=== PATIENT | female | born 1950 | race Caucasian/White ===

== ENCOUNTER 2021-11-27 14:20 | Inpatient (IN) | payer OTHER, MEDICARE ==
[2021-11-27] MEDS ORDERED: hydrALAZINE 20 MG/ML VIAL SLOW IVP PRN (17:55)
[2021-11-27] MEDS ORDERED: Morphine 4 MG/ML VIAL SLOW IVP PRN (17:55)
[2021-11-27] MEDS ORDERED: Dextrose 50% Abboject 50 ML SYRINGE SLOW IVP PRN (17:55)
[2021-11-27] MEDS ORDERED: Ondansetron PF 4 MG/2 ML Vial IVP PRN (17:55)
[2021-11-27] MEDS ORDERED: Dextrose 5% in Water 1,000 ML IV PRN (17:55)
[2021-11-27 18:03] LABS: #Basophils 0.1 thou/uL (0.0-0.2); #Eosinphils 0.1 thou/uL (0.0-0.7); #Lymphocytes 1.7 thou/uL (1.20-3.40); #Neutrophils 5.4 thou/uL (1.40-6.50); %Basophils 0.9 % (0.0-1.0); %Eosinophils 1.8 % (0.0-10.0); %Lymphocytes 20.9 % (21.0-51.0); %Monocytes 11.5 % (0.0-10.0); Hemoglobin 10.5 g/dL (12.0-16.0); Mean Corpuscular Hemoglobin 30.2 pg (27.0-31.0); Mean Corpuscular Volume 94.4 fL (78.0-98.0); Mean Platelet Volume 7.1 fL (7.4-10.4); Platelet Count 397 thou/uL (130-400); RBC Distribution Width 17.3 % (11.5-14.5); Red Blood Cell (RBC) Count 3.47 mill/uL (4.20-5.40); White Blood Cell (WBC) Count 8.3 thou/uL (4.8-10.8)
[2021-11-27 18:21] LABS: Bilirubin Negative (Negative); Blood, Urine Trace (Negative); Clarity Clear (Clear); Glucose, Urine (Dipstick) Normal (Negative); Ketone, Urine Trace mg/dL (Negative); Leukocyte Negative Leu/uL (Negative); Nitrite Negative (Negative); Protein, Urine (Dipstick) Negative (Neg-Trace); Specific Gravity, Urine 1.012 (1.002-1.036); Squamous Epithelial 0-3 HPF (0-3); Urobilinogen Normal mg/dL (Less than 2); WBC/HPF 0-3 HPF (0-3); pH, Urine 6.5 (5.0-9.0)
[2021-11-27 18:22] LABS: Bacteria/HPF Rare-Few HPF (None Seen)
[2021-11-27 18:27] LABS: ALT (SGPT) 10 U/L (8-55); AST (SGOT) 11 U/L (5-34); Albumin 3.7 g/dL (3.4-4.8); Alkaline Phosphatase 118 U/L (40-110); Anion Gap 15 mmol/L (10-20); BUN (Urea Nitrogen) 7 mg/dL (9.8-20.1); Bilirubin, Total 0.5 mg/dL (0.2-1.2); Calc. Creatinine Clearance 0 mL/min (70-130); Calcium 9.9 mg/dL (7.8-10.44); Carbon Dioxide 25 mmol/L (23-31); Chloride 103 mmol/L (98-107); Globulin 3.4 g/dL (2.4-3.5); Glucose 85 mg/dL (83-110); Magnesium 1.9 mg/dL (1.6-2.6); Potassium 3.9 mmol/L (3.5-5.1); Protein, Total 7.1 g/dL (5.8-8.1); Sodium 139 mmol/L (136-145)
[2021-11-27] MEDS ORDERED: Cyclobenzaprine 10 MG TAB PO PRN (18:38)
[2021-11-27] MEDS ORDERED: traMADol HCl 50 MG TAB PO PRN ×2 (18:38)
[2021-11-27 19:01] LABS: SARS-CoV-2 NAA Rapid Test Not Detected (NotDetected)
[2021-11-27 19:37] LABS: Amphetamine Not Detected (NotDetected); Barbiturates Screen Not Detected (NotDetected); Benzodiazepine Screen Not Detected (NotDetected); Cocaine Metabolite Screen Not Detected (NotDetected); Methadone Not Detected (NotDetected); Methamphetamine Not Detected (NotDetected); Opiate Screen Not Detected (NotDetected); Oxycodone Screen Not Detected (NotDetected); Phencyclidine (PCP) Not Detected (NotDetected); THC/Cannabinoid Screen Not Detected (NotDetected); Tricyclic Screen Not Detected (NotDetected)
[2021-11-27] MEDS: Famotidine 20 MG TAB PO SCH (20:19)
[2021-11-27] MEDS: Ibuprofen 600 MG TAB PO SCH (20:20)
[2021-11-27] MEDS: Senokot S 8.6-50 MG TAB PO SCH (20:20)
[2021-11-27 21:58] VITALS: BMI 19.5
[2021-11-27] MEDS: Acetaminophen 500 MG TAB PO SCH (23:57)
[2021-11-28] MEDS ORDERED: Sodium Chloride 0.9% 1,000 ML IV SCH
[2021-11-28] MEDS: Acetaminophen 500 MG TAB PO SCH ×4 (05:58→23:28)
[2021-11-28] MEDS: Ibuprofen 600 MG TAB PO SCH ×3 (06:15→21:18)
[2021-11-28 06:25] LABS: #Basophils 0.1 thou/uL (0.0-0.2); #Eosinphils 0.2 thou/uL (0.0-0.7); %Basophils 0.8 % (0.0-1.0); %Eosinophils 3.3 % (0.0-10.0); %Lymphocytes 27.4 % (21.0-51.0); %Monocytes 13.6 % (0.0-10.0); %Neutrophils 54.9 % (42.0-75.0); Hemoglobin 9.5 g/dL (12.0-16.0); Mean Corpuscular HGB CONC 32.6 g/dL (32.0-36.0); Mean Corpuscular Hemoglobin 30.6 pg (27.0-31.0); Mean Corpuscular Volume 93.9 fL (78.0-98.0); Mean Platelet Volume 6.8 fL (7.4-10.4); Platelet Count 392 thou/uL (130-400); RBC Distribution Width 17.1 % (11.5-14.5); Red Blood Cell (RBC) Count 3.11 mill/uL (4.20-5.40); White Blood Cell (WBC) Count 7.3 thou/uL (4.8-10.8)
[2021-11-28 06:49] LABS: Anion Gap 10 mmol/L (10-20); BUN (Urea Nitrogen) 10 mg/dL (9.8-20.1); Calc. Creatinine Clearance 77 mL/min (70-130); Calcium 9.6 mg/dL (7.8-10.44); Carbon Dioxide 27 mmol/L (23-31); Chloride 105 mmol/L (98-107); Glucose 92 mg/dL (83-110); Magnesium 1.9 mg/dL (1.6-2.6); Phosphorus 3.7 mg/dL (2.3-4.7); Potassium 3.5 mmol/L (3.5-5.1); Sodium 138 mmol/L (136-145)
[2021-11-28] MEDS ORDERED: ceFAZolin Sodium/D5W 2 GM in Premix Bag 1 BAG IVPB SCH (07:30)
[2021-11-28] MEDS ORDERED: Magnesium Sulfate 2 GM in Sodium Chloride 0.9% 100 ML IV SCH (07:45)
[2021-11-28] MEDS: Famotidine 20 MG TAB PO SCH ×2 (08:49→21:17)
[2021-11-28] MEDS: Senokot S 8.6-50 MG TAB PO SCH ×2 (08:49→21:18)
[2021-11-28] MEDS: Polyethylene Glycol 3350 17 GM Packet PO SCH (08:49)
[2021-11-28] MEDS ORDERED: Potassium Phosphate 30 MMOL, Magnesium Sulfate 2 GM in Sodium Chloride 0.9% 250 ML IVPB SCH (09:00)
[2021-11-28] MEDS ORDERED: Fentanyl 100 MCG/2 ML VIAL ONE ×3 (11:50→15:51)
[2021-11-28] MEDS ORDERED: Midazolam HCl 2 mg/2 ml Vial ONE (11:50)
[2021-11-28] MEDS ORDERED: ceFAZolin 2 GM/DEX 5% 100 ML BAG ONE (11:58)
[2021-11-28] MEDS ORDERED: PROPOFOL 200 MG/20 ML VIAL ONE (13:25)
[2021-11-28] MEDS ORDERED: Dexamethasone 20 MG/5 ML VIAL ONE (13:25)
[2021-11-28] MEDS ORDERED: Lidocaine 1% PF 5 ML VIAL ONE (13:25)
[2021-11-28] MEDS ORDERED: Bupivacaine HCl 0.5%/Epinephrine 1:200,000/PF 30 ml Vial ONE (13:25)
[2021-11-28] MEDS ORDERED: Rocuronium Bromide 10 MG/ML (10ML VIAL) ONE (13:25)
[2021-11-28] MEDS ORDERED: Ondansetron PF 4 MG/2 ML Vial ONE (13:25)
[2021-11-28] MEDS ORDERED: Glycopyrrolate 0.2 MG/ML 5 ML SYRINGE ONE (13:25)
[2021-11-28] MEDS ORDERED: ePHEDrine 50 MG/ML VIAL ONE (13:25)
[2021-11-28] MEDS ORDERED: traMADol HCl 50 MG TAB PO PRN (13:40)
[2021-11-28] MEDS ORDERED: Promethazine HCl 25 MG/ML VIAL IVPB PRN (15:49)
[2021-11-28] MEDS ORDERED: Morphine Sulfate 2 MG/ML SYRINGE SLOW IVP PRN (15:49)
[2021-11-28] MEDS ORDERED: Promethazine HCl 25 MG/ML VIAL IM PRN (15:49)
[2021-11-28] MEDS ORDERED: Ondansetron HCl/PF 4 MG/2 ML Vial IVP PRN (15:49)
[2021-11-28] MEDS: traMADol HCl 50 MG TAB PO SCH ×2 (17:43→23:27)
[2021-11-28] MEDS: Aspirin 81 mg Enteric Coated Tablet PO SCH (21:17)
[2021-11-28] MEDS: ceFAZolin Sodium/D5W 2 GM in Premix Bag 1 BAG IVPB SCH (21:21)
[2021-11-29 04:25] LABS: #Lymphocytes 1.1 thou/uL (1.20-3.40); #Monocytes 0.9 thou/uL (0.11-0.59); #Neutrophils 6.4 thou/uL (1.40-6.50); %Basophils 0.1 % (0.0-1.0); %Eosinophils 0.1 % (0.0-10.0); %Lymphocytes 13.4 % (21.0-51.0); %Monocytes 10.1 % (0.0-10.0); %Neutrophils 76.3 % (42.0-75.0); Hemoglobin 9.2 g/dL (12.0-16.0); Mean Corpuscular HGB CONC 33.6 g/dL (32.0-36.0); Mean Corpuscular Hemoglobin 31.5 pg (27.0-31.0); Mean Corpuscular Volume 93.9 fL (78.0-98.0); Mean Platelet Volume 6.6 fL (7.4-10.4); Platelet Count 377 thou/uL (130-400); White Blood Cell (WBC) Count 8.4 thou/uL (4.8-10.8)
[2021-11-29 04:54] LABS: Anion Gap 10 mmol/L (10-20); BUN (Urea Nitrogen) 14 mg/dL (9.8-20.1); Calc. Creatinine Clearance 72 mL/min (70-130); Calcium 9.8 mg/dL (7.8-10.44); Carbon Dioxide 27 mmol/L (23-31); Chloride 105 mmol/L (98-107); Glucose 112 mg/dL (83-110); Magnesium 2.1 mg/dL (1.6-2.6); Phosphorus 3.8 mg/dL (2.3-4.7); Potassium 4.2 mmol/L (3.5-5.1); Sodium 138 mmol/L (136-145)
[2021-11-29] MEDS: Acetaminophen 500 MG TAB PO SCH ×4 (05:42→23:59)
[2021-11-29] MEDS: traMADol HCl 50 MG TAB PO SCH ×4 (05:44→23:58)
[2021-11-29] MEDS: Ibuprofen 600 MG TAB PO SCH ×3 (05:45→21:44)
[2021-11-29] MEDS: ceFAZolin Sodium/D5W 2 GM in Premix Bag 1 BAG IVPB SCH ×2 (05:52→14:06)
[2021-11-29] MEDS: Famotidine 20 MG TAB PO SCH ×2 (08:51→21:44)
[2021-11-29] MEDS: Aspirin 81 mg Enteric Coated Tablet PO SCH ×2 (08:51→21:43)
[2021-11-29] MEDS: Senokot S 8.6-50 MG TAB PO SCH ×2 (08:51→21:40)
[2021-11-29] MEDS: Polyethylene Glycol 3350 17 GM Packet PO SCH (08:51)
[2021-11-29] MEDS ORDERED: Enoxaparin Sodium 40 MG/0.4 ML SYRINGE SC SCH (09:00)
[2021-11-30] MEDS: Acetaminophen 500 MG TAB PO SCH ×2 (06:29→13:47)
[2021-11-30] MEDS: traMADol HCl 50 MG TAB PO SCH ×2 (06:30→13:47)
[2021-11-30] MEDS: Ibuprofen 600 MG TAB PO SCH ×2 (06:31→13:46)
[2021-11-30] MEDS: Famotidine 20 MG TAB PO SCH (09:24)
[2021-11-30] MEDS: Senokot S 8.6-50 MG TAB PO SCH (09:24)
[2021-11-30] MEDS: Polyethylene Glycol 3350 17 GM Packet PO SCH (09:24)
[2021-11-30] MEDS: Aspirin 81 mg Enteric Coated Tablet PO SCH (09:24)
[2021-11-30 16:23] VITALS: BP 134/81; TEMP 98.3
== END 2021-11-30 18:12 | disposition home health service (06) | DRG 482 ==
LOC: ERS 14:20 → SURG B 17:55
PROVIDERS: ADMIT Surgery; ATTEND Surgery
PROC: 0QSB06Z Reposition Right Lower Femur with Intramedullary Internal Fixation Device, Open Approach (ICD-10-PCS; principal; 2021-11-28)
DX: S79.191A Other physeal fracture of lower end of right femur, initial encounter for closed fracture (principal); Z20.822 Contact with and (suspected) exposure to COVID-19; F17.210 Nicotine dependence, cigarettes, uncomplicated; W01.0XXA Fall on same level from slipping, tripping and stumbling without subsequent striking against object, initial encounter
CPT/HCPCS: 36415; 71045; 76000; 80048; 80053; 80306; 80307; 81003; 81015; 83735; 84100; 85025; 86850; 86870; 86900; 86901; 86921; 93005; 94640; C1713; J1100; J2250; J2405; J2704; J3010; J3475; J3490; J7030; J7050; J7620; U0002